=== PATIENT | male | born 1995 | race Hispanic/Latino ===

== ENCOUNTER 2019-09-04 16:13 | Emergency (ER) | payer SELFPAY ==
--- NOTE | 2019-09-04 18:22 | ULT ---
TESTICULAR ULTRASOUND: History: Left testicular pain. FINDINGS: Real-time imaging of the right and left testes was performed. The right testicle measures 3.2 cm and the left testicle 3 cm in length. The right epididymis region appears unremarkable. A left sided vericocele is present. Adjacent to the vericocele is a fairly well defined hypoechoic approximately 6 x 9 mm nodule which has a central mor e hyperechoic area. Some of the features are very suggestive of a lymph node. This was discussed with the technologist who did state that it was very well defined. The other possibility is that this cou ld be some type of thrombosed vein, but she said it appears to be separate from the vericocele. The l eft epididymis is mildly prominent. DOPPLER EVALUATION WITH SPECTRAL ANALYSIS: Normal flow is shown to both testes. Questionable slight increased flow to the left epididymis region . IMPRESSION: 1. Findings suggesting possibly a left epididymitis. 2. Left sided vericocele. 3. Kidney reyes shaped nodular density which is higher in the scrotal sac, but not definitely in the i nguinal region, although this has some features that would be suggestive of a small lymph node. POS: [facility]
== END 2019-09-04 17:50 | disposition home or self-care (01) ==
LOC: ERS 16:13
DX: N45.1 Epididymitis (principal); F17.210 Nicotine dependence, cigarettes, uncomplicated
CPT/HCPCS: 76870; 93976